=== PATIENT | female | born 1960 | race Hispanic/Latino ===

== ENCOUNTER 2017-09-03 16:35 | Outpatient (CLI) | payer BC | END 2017-09-03 16:36 | disposition home or self-care (01) | LOC: LAB 16:35 | PROVIDERS: ATTEND Internal Medicine | DX: R73.01 Impaired fasting glucose (principal) | CPT/HCPCS: 36415; 83036 ==

== ENCOUNTER 2017-09-12 08:14 | Outpatient (CLI) | payer BC ==
--- NOTE | 2017-09-13 14:48 | Magnetic Resonance Report ---
MR LOWER EXTREMITY JOINT LEFT WITHOUT CONTRAST History: Left knee pain. Meniscal tear. Technique: Multisequence, multiplanar MRI without contrast. Findings: No comparison. Mild to moderate cartilage thinning and joint space narrowing is identified in the medial compartment. The lateral compartment and patellofemoral space are within normal limits. There is minimal subchondral bone marrow edema in the medial tibial plateau consistent with contusion. The remaining bone marrow signal is within normal limits. No bone lesion or fracture. The ACL, PCL, MCL, LCL complex and extensor complex are intact. Normal popliteus. The lateral meniscus is normal. The posterior horn of the medial meniscus is flattened and irregular. This probably represents a complex tear or advanced degeneration. The remainder of the medial meniscus is within normal limits. No significant joint effusion. No popliteal cyst. Impression: Mild to moderate medial compartment osteoarthritic changes. Slightly abnormal posterior horn medial meniscus. Advanced degeneration or tear is suspected.
== END 2017-09-12 08:15 | disposition home or self-care (01) ==
LOC: MRI 08:14
PROVIDERS: ATTEND Orthopaedic Surgery
DX: M17.12 Unilateral primary osteoarthritis, left knee (principal)
CPT/HCPCS: 73721

== ENCOUNTER 2017-10-24 07:02 | Day surgery (SDC) | payer BC ==
[2017-10-24] MEDS ORDERED: XYLOCAINE MPF 2% ONE (07:31)
[2017-10-24] MEDS ORDERED: ZEMURON IV ONE (07:31)
[2017-10-24] MEDS ORDERED: DIPRIVAN 10 MG/ML IV ONE (07:32)
[2017-10-24] MEDS ORDERED: DILAUDID ONE (07:32)
[2017-10-24] MEDS ORDERED: NACL BACTERIOSTATIC INFILTRATI ONE (07:41)
--- NOTE | 2017-10-24 07:53 | Anesthesia Consultation ---
Anesthesia Consult and Med Hx Date of service: 10/24/17 - Airway Anesthetic Teeth Evaluation: Good ROM Head & Neck: Adequate Mental/Hyoid Distance: Adequate Mallampati Class: Class I Intubation Access Assessment: Good - Pulmonary Exam CTA: Yes - Cardiac Exam Cardiac Exam: RRR - Pre-Operative Health Status ASA Pre-Surgery Classification: ASA2 Proposed Anesthetic Plan: General - Pre-Anesthesia Comment Pre-Anesthesia Comments: PONV - Gastrointestinal Hx Gastroesophageal Reflux Disease: Yes (MILD) - Endocrine Hx Non-Insulin Dependent Diabetes: Yes (Pre Diabetic ) - Other Systems Hx Obesity: Yes
--- NOTE | 2017-10-24 07:54 | Anesthesia Day of Surgery ---
Anesthesia Day of Surgery - Day of Surgery Patient Examined: Yes Patient H&P Reviewed: Yes Patient is NPO: Yes
[2017-10-24] MEDS ORDERED: ANCEF/STERILE WATER 2 GM/20 ML IV NR (08:00)
[2017-10-24] MEDS ORDERED: PEPCID IV NR (08:00)
[2017-10-24] MEDS ORDERED: TRANSDERM-SCOP TD NR (08:00)
[2017-10-24] MEDS ORDERED: PEPCID PO NR (08:00)
[2017-10-24] MEDS ORDERED: NACL 0.9% 1000 ML 1,000 ML IV SCH (08:00)
[2017-10-24] MEDS ORDERED: VERSED IV NR (08:00)
[2017-10-24] MEDS ORDERED: MARCAINE 0.25% INFILTRATI ONE ×3 (08:29→08:30)
[2017-10-24] MEDS ORDERED: XYLOCAINE 1% 20 mL ONE (08:29)
[2017-10-24] MEDS ORDERED: XYLOCAINE 1% 20 mL INFILTRATI ONE ×2 (08:30)
[2017-10-24] MEDS ORDERED: QUELICIN ONE (08:31)
--- NOTE | 2017-10-24 08:36 | Short Stay Summary ---
Short Stay Documentation Date of service: 10/24/17 Narrative H&P: 57 yo F with RUQ pain, intermittement, recently hospitalized and worked up for CP/abd pain and found to have elevated LFTs, gallstones, negative cardiac workup. The patient was referred for cholecystectomy and seen in the office as an outpatient. F/U labs showed resolution of transaminitis. Patient is still having discomfort daily in RUQ and now presents for elective cholecystectomy. - History Principal diagnosis: chronic cholecystitis H&P: obtained from office - Allergies and Medications Current Medications: Allergies codeine Allergy (Verified 10/17/17 16:12) Hives Sulfa (Sulfonamide Antibiotics) Allergy (Verified 10/17/17 16:12) 2N DEGREE JOHNSON 2ND DEGREE JOHNSON ON SKIN, BLISTERS Home Medications Medication Instructions Recorded Confirmed Last Taken Type metFORMIN [Glucophage] 500 mg PO BID 09/30/17 10/24/17 10/23/17 07:00 History Ondansetron [Zofran TAB] 4 mg PO Q8HR PRN #30 tablet 10/01/17 10/24/17 10/23/17 08:30 Rx traMADol [Ultram] 50 mg PO Q6HR PRN #14 tablet 10/01/17 10/17/17 Unknown Rx Omeprazole 20 mg PO DAILY 10/17/17 10/24/17 10/23/17 09:00 History Active Medications Cefazolin Sodium (Ancef/Sterile Water 2 Gm/20 Ml) 2 gm IV PREOP NR Stop: 10/24/17 23:59 Famotidine (Pepcid) 20 mg IV PREOP NR Stop: 10/24/17 21:00 Last Admin: 10/24/17 08:12 Dose: 20 mg Sodium Chloride (Nacl 0.9% 1000 Ml) 1,000 mls @ 42 mls/hr IV DIRECT CASANDRA Last Admin: 10/24/17 08:11 Dose: 42 mls/hr Midazolam HCl (Versed) 2 mg IV PREOP NR Stop: 10/24/17 23:59 Last Admin: 10/24/17 08:16 Dose: 2 mg Scopolamine (Transderm-Scop) 1 each TD PREOP NR Stop: 10/24/17 21:00 Last Admin: 10/24/17 08:12 Dose: 1 each - Brief post op/procedure progress note Date of procedure: 10/24/17 Pre-op diagnosis: chronic cholecystitis Post-op diagnosis: same Procedure: laparoscopic cholecystectomy Anesthesia: GETA Findings: thickened gallbladder wall with small stones in gallbladder. adhesions to colon and duodenum Surgeon: DANIS PERDOMO Estimated blood loss: minimal Pathology: list (gallbladder) Specimen disposition: to lab Condition: stable - Hospital course Hospital course: Pt recovered in the PACU and discharged to home when criteria met. - Disposition Condition at discharge: Stable Disposition: DC-01 TO HOME OR SELFCARE - Discharge Diagnoses (1) Chronic cholecystitis Status: Acute Short Stay Discharge Plan Activity: other (no heavy lifting more than 15 lbs for 4 weeks. No driving if taking narcotic pain meds.) Diet: regular Wound: open to air, other (may shower, no baths/hottubs/pools until incisions healed. Pat dry, do not scrub incisions.) Additional Instructions: Call surgeon's office if having intractable nausea/vomiting, abdominal pain not controlled with oral pain meds, or redness around incisions, pus draining from incisions. Follow up with: ÁNGELA ROMEO MD [Primary Care Provider] - 7 Days DANIS PERDOMO DO [Staff Physician] - 14 Days Prescriptions: Ondansetron [Zofran Odt] 4 mg PO Q8HR #20 tab.rapdis oxyCODONE /ACETAMINOPHEN [Percocet 5/325] 1 tab PO Q4HR #20 tab
[2017-10-24] MEDS ORDERED: ZOFRAN ONE ×2 (09:01→10:47)
[2017-10-24] MEDS ORDERED: ROBINUL ONE (09:01)
[2017-10-24] MEDS ORDERED: DECADRON ONE (09:01)
[2017-10-24] MEDS ORDERED: NEOSTIGMINE ONE (09:01)
[2017-10-24] MEDS ORDERED: NACL 0.9% IR ONE (09:23)
[2017-10-24] MEDS ORDERED: ePHEDrine SULFATE ONE (09:24)
[2017-10-24] MEDS ORDERED: NACL 0.9% 1000 ML 1,000 ML ONE (09:52)
[2017-10-24] MEDS ORDERED: TORADOL ONE (10:09)
[2017-10-24] MEDS ORDERED: ZOFRAN IM ONE (10:55)
--- NOTE | 2017-10-24 10:57 | Operative Report ---
Operative Report Operative Report: Date of operation: 10/24/2017 Preoperative diagnosis: Chronic cholecystis Postoperative diagnosis: Chronic cholecystitis Procedure performed: Left. Cholecystectomy Surgeon: Jie Mccloud DO Anesthesia: Gen. endotracheal anesthesia Findings: Dilated gallbladder thickened wall small stones in the neck, adhesions from the gallbladder to the colon and duodenum EBL: <5cc Specimen: Gallbladder Complications: None Disposition: Stable to PACU HPI and indication: Patient is a 57 yo F who has been having ongoing RUQ pain and nausea for the last several weeks. She was admitted to the hospital for c/o CP/RUQ and had a full cardiac workup which was negative. Her RUQ u/s showed gallstones and her LFTs were elevated. The transaminitis slowly resolved and she was able to be discharged. Patient was seen in the office and scheduled for an elective cholecystectomy. All risks were discussed and consent signed after all questions answered. Procedure in detail: Patient was identified in the preoperative area and taken back to the OR and placed on the OR table in supine position. After anesthesia was induced, the abdomen was prepped and draped in the usual sterile fashion. A time out was performed. Local anesthetic was infiltrated into the skin and subcutaneous tissue at all incision sites. The abdomen was insufflated with a veress needle through a 5mm supraumbilical incision made using an 11 blade. The positioning of the veress needle was confirmed using a saline drop test. The abdomen was insufflated to 15mmHg and the Veress needle removed. Using Visiport , a 5 mm trocar was placed in this incision. The abdomen was then inspected and there is no underlying injury to any of the abdominal structures. An additional 12 mm subxiphoid, and 2 -5 mm right upper quadrant ports were placed all under direct visualization. The gallbladder was grasped and lifted cephalad. There were adhesions from the right colon and the duodenum to the gallbladder. These adhesions were taken down bluntly with great care. The cystic duct and artery were then meticulously dissected and skeletonized. The cystic plate was cleared and the cystic duct and artery were the only 2 structures entering the gallbladder. These were then clipped with 3 clips proximal on the cystic duct and one distal and 2 clips proximal on the cystic artery and one distal. The cystic duct and artery were then transected in between the clips using EndoShears. The gallbladder was then removed from the liver bed using hook electrocautery. It was placed into an Endo Catch bag and removed from the abdomen via 12 mm subxiphoid port. The gallbladder fossa was then inspected and there was no bleeding identified. The clips were identified and intact. The gallbladder fossa and Morison's pouch were then irrigated with saline until the irrigant returned clear. The 12 mm port fascia was then closed using an 0 Vicryl interrupted stitch using a Steve Andrade device. All of the ports were then removed under direct visualization and the abdomen desufflated. All skin incisions were closed using 4-0 Monocryl subcuticular stitches and skin glue. At the end of the case all sponge, instrument, and sharp counts were correct 2. Patient was awoke from anesthesia, extubated and taken to PACU in stable condition.
[2017-10-24] MEDS ORDERED: PERCOCET 5/325 PO PRN (11:01)
[2017-10-24] MEDS ORDERED: ZOFRAN IV ONE (11:28)
[2017-10-24] MEDS ORDERED: DECADRON IV NR (12:04)
--- NOTE | 2017-10-24 13:23 | Post Anesthesia Evaluation ---
- Post Anesthesia Evaluation Patient Participated: Yes Airway Patent: Yes Stable Respiratory Function: Yes Nausea/Vomiting: No Temp > 96.8F: Yes Pain Manageable: Yes Adequeate Hydration: Yes Anesthesia Complications: No
[2017-10-24] MEDS ORDERED: PHENERGAN PO ONE (13:37)
[2017-10-24 16:29] VITALS: BP 128/70
== END 2017-10-24 13:48 | disposition home or self-care (01) ==
LOC: OR 07:02
PROVIDERS: ATTEND Surgery
DX: K80.10 Calculus of gallbladder with chronic cholecystitis without obstruction (principal); K66.0 Peritoneal adhesions (postprocedural) (postinfection); K21.9 Gastro-esophageal reflux disease without esophagitis; M19.90 Unspecified osteoarthritis, unspecified site; E66.9 Obesity, unspecified; F41.9 Anxiety disorder, unspecified; Z68.38 Body mass index [BMI] 38.0-38.9, adult; Z98.890 Other specified postprocedural states; Z90.710 Acquired absence of both cervix and uterus; Z79.84 Long term (current) use of oral hypoglycemic drugs; Z88.5 Allergy status to narcotic agent; Z88.2 Allergy status to sulfonamides
CPT/HCPCS: 47562; 82962; 88304; A4217; J0330; J0690; J1100; J1170; J1885; J2250; J2405; J2704; J2710; J7030; Q0169

== ENCOUNTER 2018-11-20 15:37 | Outpatient (CLI) | payer BC ==
--- NOTE | 2018-11-24 09:00 | Magnetic Resonance Report ---
MR LOWER EXTREMITY JOINT LEFT WITHOUT CONTRAST HISTORY: Neoplasm of unspecified behavior of bone, soft-tissue, and skin. TECHNIQUE: Multisequence, multiplanar MRI without contrast was performed through the left ankle and foot. COMPARISON: No relevant comparison. FINDINGS: A vitamin E marker has been placed overlying the medial, distal foot. Underlying this marker, a 13 x 9 x 7 mm intermediate signal mass is identified. This mass has well-defined borders and is homogeneous. There is an intimate association with the tendon sheath of the flexor hallucis longus tendon. This has the appearance of a focal plantar fibroma. No additional fibroma or other mass is identified. The remaining musculotendinous structures are unremarkable. No evidence for rupture, tendinosis or tenosynovitis. The plantar fascia is intact. There is normal bone marrow signal through the visualized left foot. Moderate osteoarthritis is noted at the first metatarsophalangeal joint. There is also a moderate hallux valgus deformity measuring up to 30 degrees. No erosive joint pathology, bone lesion or fracture. 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
== END 2018-11-20 15:38 | disposition home or self-care (01) ==
LOC: MRI 15:37
PROVIDERS: ATTEND Podiatrist Foot & Ankle Surgery
DX: D21.22 Benign neoplasm of connective and other soft tissue of left lower limb, including hip (principal); E66.9 Obesity, unspecified; I10 Essential (primary) hypertension; J44.9 Chronic obstructive pulmonary disease, unspecified; K21.9 Gastro-esophageal reflux disease without esophagitis; E11.9 Type 2 diabetes mellitus without complications; M19.90 Unspecified osteoarthritis, unspecified site; Z90.710 Acquired absence of both cervix and uterus; Z90.12 Acquired absence of left breast and nipple
CPT/HCPCS: 73721

== ENCOUNTER 2019-02-12 16:02 | Outpatient (CLI) | payer BC ==
--- NOTE | 2019-02-13 11:39 | Mammography Report ---
BILATERAL DIGITAL SCREENING MAMMOGRAM with CAD: 02/12/19 16:02:00 CLINICAL: Routine screening. COMPARISON:10/07/13 and 09/23/12 FINDINGS: The breasts are heterogeneously dense, which may obscure small masses. Left asymmetries require additional imaging.No architectural distortion or suspicious calcifications.The right breast is negative. IMPRESSION: Left asymmetries requiring further workup. BI-RADS CATEGORY: 0 -- Additional Imaging Evaluation Required RECOMMENDATION: Recall for left mediolateral , spot magnification CC and MLO views and left breast ultrasound if needed. ACR BI-RADS MAMMOGRAPHIC CODES: 0 = Needs additional imaging evaluation; 1 = Negative; 2 = Benign; 3 = Probably benign; 4 = Suspicious; 5 = Malignant; 6 = Known biopsy-proven malignancy COMMENT: 1. Dense breast tissue, i.e., adenosis, fibrocystic changes, etc., may obscure an underlying neoplasm. 2. Approximately 10% of cancers are not detected with mammography. 3. A negative mammography report should not delay biopsy if a clinically suspicious mass is present. COMMENT: Patient follow-up letters are generated via our [employer] application.
== END 2019-02-12 16:03 | disposition home or self-care (01) ==
LOC: SPVWC 16:02
PROVIDERS: ATTEND Obstetrics & Gynecology
DX: Z12.31 Encounter for screening mammogram for malignant neoplasm of breast (principal); E66.9 Obesity, unspecified; I10 Essential (primary) hypertension; J45.909 Unspecified asthma, uncomplicated; K21.9 Gastro-esophageal reflux disease without esophagitis; M19.90 Unspecified osteoarthritis, unspecified site; E11.9 Type 2 diabetes mellitus without complications; Z90.710 Acquired absence of both cervix and uterus
CPT/HCPCS: 77067

== ENCOUNTER 2019-04-07 13:20 | Outpatient (CLI) | payer BC ==
--- NOTE | 2019-04-07 14:22 | Mammography Report ---
LEFT DIGITAL DIAGNOSTIC MAMMOGRAM and LEFT BREAST ULTRASOUND: 04/07/19 13:20:00 CLINICAL: Recalled for asymmetry. COMPARISON:02/12/19 screening FINDINGS: ML and spot magnification MLO and CC views were performed. An irregular mass persists in the lower outer quadrant along views. Ultrasound of the lower outer left breast was performed and demonstrated a solid hypoechoic mass at 4 o'clock 3 cm from the nipple. It has an irregular shape with somewhat angular margins and measures 1.0 x 0.4 x 0.5 cm.The mass produces minimal shadowing. IMPRESSION: A suspicious 1 cm left breast mass at 4 o'clock 3 cm from the nipple. BI-RADS CATEGORY: 4--Suspicious RECOMMENDATION: Ultrasound guided needle core biopsy of the left breast. I discussed the findings and the recommendation for needle core biopsy of the left breast with the patient at the time of the examination. COMMENT: 1. Dense breast tissue, i.e., adenosis, fibrocystic changes, etc., may obscure an underlying neoplasm. 2. Approximately 10% of cancers are not detected with mammography. 3. A negative mammography report should not delay biopsy if a clinically suspicious mass is present. COMMENT: Patient follow-up letters are generated via our [employer] application.
== END 2019-04-07 13:21 | disposition home or self-care (01) ==
LOC: SPVWC 13:20
PROVIDERS: ATTEND Obstetrics & Gynecology
DX: R92.8 Other abnormal and inconclusive findings on diagnostic imaging of breast (principal); K21.9 Gastro-esophageal reflux disease without esophagitis; J45.909 Unspecified asthma, uncomplicated; E11.9 Type 2 diabetes mellitus without complications; Z90.710 Acquired absence of both cervix and uterus

== ENCOUNTER 2019-04-14 13:41 | Outpatient (CLI) | payer BC ==
--- NOTE | 2019-04-14 14:48 | Mammography Report ---
LEFT DIGITAL DIAGNOSTIC MAMMOGRAM: 04/14/19 13:41:00 CLINICAL: For clip placement immediately status post ultrasound biopsy. COMPARISON:04/07/19 FINDINGS: A biopsy clip is now identified within the lower outer mass. IMPRESSION: Concordant clip placement status post ultrasound biopsy. BI-RADS CATEGORY: 4--Suspicious Pathology pending.
--- NOTE | 2019-04-14 14:50 | Ultrasound Report ---
ULTRASOUND GUIDED NEEDLE CORE BIOPSY LEFT BREAST WITH CLIP PLACEMENT: 04/14/19 14:00:00 CLINICAL: Left breast mass. COMPARISON :04/07/19 FINDINGS: The procedure was explained to the patient and informed consent was obtained. Ultrasound demonstrated the previously described 1 cm mass at 4 o'clock 3 cm from the nipple. I marked the breast with a felt tip marker and a time out was called. The skin was prepped with Betadine and anesthetized with 1% lidocaine. Needle core biopsy was performed through a tiny dermatotomy using ultrasound guidance, 2% lidocaine with epinephrine for deep anesthesia and a 14-gauge Achieve biopsy device. 4 cores were obtained and placed in formalin. A clip was deployed within the mass. The patient tolerated the procedure well and there were no apparent complications. Hemostasis was achieved with minimal pressure and a sterile dressing was applied. A two view mammogram demonstrated concordant deployment of the clip. She left the department in good condition and was given instructions for wound care and followup. IMPRESSION: Uncomplicated ultrasound guided needle core biopsy with clip placement left breast.
== END 2019-04-14 13:42 | disposition home or self-care (01) ==
LOC: SPVWC 13:41
PROVIDERS: ATTEND Obstetrics & Gynecology
DX: D24.2 Benign neoplasm of left breast (principal); I10 Essential (primary) hypertension; E66.9 Obesity, unspecified; M19.90 Unspecified osteoarthritis, unspecified site; E11.9 Type 2 diabetes mellitus without complications; K21.9 Gastro-esophageal reflux disease without esophagitis; J45.909 Unspecified asthma, uncomplicated; Z88.5 Allergy status to narcotic agent; Z90.710 Acquired absence of both cervix and uterus; Z88.2 Allergy status to sulfonamides; Z79.899 Other long term (current) drug therapy; Z79.84 Long term (current) use of oral hypoglycemic drugs; Z98.890 Other specified postprocedural states; Z72.89 Other problems related to lifestyle
CPT/HCPCS: 88305

== ENCOUNTER 2019-08-18 10:22 | Outpatient (CLI) | payer BC ==
[2019-08-18 11:16] LABS: Alanine Aminotransferase 19 units/L (7-56); Albumin 4.5 g/dL (3.9-5); BUN/Creatinine Ratio 36; Blood Urea Nitrogen 18 mg/dL (7-17); Calcium 9.3 mg/dL (8.4-10.2); Hemolysis Index 22; LDL Cholesterol,Direct 121 mg/dL (50-130)
[2019-08-18 11:31] LABS: Chol/HDL Ratio 2.62 %; HDL Cholesterol 79 mg/dL (40-59)
== END 2019-08-18 10:23 | disposition home or self-care (01) ==
LOC: LAB 10:22
PROVIDERS: ATTEND Internal Medicine
DX: R73.03 Prediabetes (principal)
CPT/HCPCS: 36415; 80053; 80061; 83036

== ENCOUNTER 2019-09-22 14:02 | Outpatient (CLI) | payer BC ==
--- NOTE | 2019-09-22 14:54 | Mammography Report ---
DIGITAL LEFT DIAGNOSTIC MAMMOGRAM WITH CAD, WITHOUT TOMOSYNTHESIS 09/22/2019 INDICATION: Follow-up after needle biopsy of benign fibroadenomatoid change. TECHNIQUE: Digital left mammographic imaging was performed. This examination was interpreted with the benefit of Computer-aided Detection analysis. COMPARISON: 04/14/2019 and 04/07/2019 Breast Density: There are scattered areas of fibroglandular density. FINDINGS: The previously described lower outer low-density partially circumscribed mass is less promi nent and contains a biopsy clip. IMPRESSION: No mammographic evidence of malignancy. Follow up recommendation: Routine BI-RADS Category 2: Benign. A "normal" or negative report should not discourage follow up or biopsy of a clinically significant f inding. A written summary of these findings will be mailed to the patient. The patient will be entered into a mammography reporting system which will generate a reminder letter for the patient's next appointmen t at the appropriate interval. According to the [employer], yearly mammograms are recommended starting at age 40 and continuing as long as a woman is in good health. Breast MRI is recommended for women with an randall roximately 20-25% or greater lifetime risk of breast cancer, including women with a strong family his tory of breast or ovarian cancer and women who have been treated for Hodgkin's disease. Signer Name: Jarrett Paulino MD Signed: 09/22/2019 2:50 PM Workstation Name: [id number]
--- NOTE | 2019-09-22 15:54 | Ultrasound Report ---
LIMITED LEFT BREAST ULTRASOUND HISTORY: Follow-up after ultrasound-guided needle biopsy with nonspecific benign pathology. Pathology : Fibroadenomatous change. COMPARISON: 04/14/2019 FINDINGS: Focused sonographic evaluation upon the 4:00 3 cm from the nipple location of the right noelle ast demonstrates a stable solid slightly irregular hypoechoic mass with a biopsy clip. It measures 10 x 4 x 5 mm and has not changed. IMPRESSION: A stable 1 cm benign left breast mass at 4:00 3 cm from the nipple. Recommend routine mammographic sc reening. BIRADS 2: Benign Signer Name: Jarrett Paulino MD Signed: 09/22/2019 3:50 PM Workstation Name: [id number]
== END 2019-09-22 14:03 | disposition home or self-care (01) ==
LOC: SPVWC 14:02
PROVIDERS: ATTEND Surgery
DX: Z12.31 Encounter for screening mammogram for malignant neoplasm of breast (principal); N63.0 Unspecified lump in unspecified breast; D24.2 Benign neoplasm of left breast; J45.909 Unspecified asthma, uncomplicated; K21.9 Gastro-esophageal reflux disease without esophagitis; Z90.710 Acquired absence of both cervix and uterus; M19.90 Unspecified osteoarthritis, unspecified site; Z98.890 Other specified postprocedural states

== ENCOUNTER 2019-12-22 14:17 | Outpatient (CLI) | payer BC ==
--- NOTE | 2019-12-22 14:53 | XRay Report ---
LEFT KNEE 2 VIEWS INDICATION / CLINICAL INFORMATION: M25.562 PAIN IN LEFT KNEE. COMPARISON: None available. FINDINGS: Moderate degenerative change, with joint space narrowing and hypertrophic spurring medially. No acute fracture. No evidence of significant joint effusion or hemarthrosis. Signer Name: Dave Roach MD Signed: 12/22/2019 2:48 PM Workstation Name: [id number]
== END 2019-12-22 14:18 | disposition home or self-care (01) ==
LOC: XRAY 14:17
PROVIDERS: ATTEND Internal Medicine
DX: M17.12 Unilateral primary osteoarthritis, left knee (principal); M76.892 Other specified enthesopathies of left lower limb, excluding foot

== ENCOUNTER 2020-01-11 16:42 | Outpatient (CLI) | payer BC ==
--- NOTE | 2020-01-11 18:03 | XRay Report ---
HISTORY:UNILATERAL PRIMARY OSTEOARTHRITIS COMPARISON: None. TECHNIQUE: AP lateral and obliques views were obtained as well as sunrise view FINDINGS: Bones: No fracture or dislocation. Joint spaces: Marked narrowing of the femorotibial articulation predominantly medial aspect with smal l osteophytes. Soft tissues: No significant abnormality. Additional findings: None. IMPRESSION: 1. Degenerative changes as noted . Signer Name: Reyes Cardenas MD Signed: 01/11/2020 5:59 PM Workstation Name: [id number]
== END 2020-01-11 16:43 | disposition home or self-care (01) ==
LOC: XRAY 16:42
PROVIDERS: ATTEND Orthopaedic Surgery
DX: M25.762 Osteophyte, left knee (principal); M17.12 Unilateral primary osteoarthritis, left knee

== ENCOUNTER 2020-01-18 13:22 | Outpatient (CLI) | payer BC ==
[2020-01-18 13:43] LABS: Hematocrit 43.4 % (30.3-42.9); Hemoglobin 14.7 gm/dl (10.1-14.3); Mean Corpuscular HGB Conc 34 % (30-34); Mean Corpuscular Volume 95 fl (79-97); Platelet Count 343 K/mm3 (140-440); Red Cell Distribution Width 13.2 % (13.2-15.2)
[2020-01-18 13:46] LABS: Bilirubin,Urine NEG (Negative); Color,Urine Straw (Yellow)
[2020-01-18 13:47] LABS: Bacteria,Urine 1+ /HPF (Negative); Blood,Urine NEG (Negative); Protein,Urine <15 mg/dL mg/dL (Negative); Urobilinogen,Urine < 2.0 mg/dL (<2.0)
[2020-01-18 13:53] LABS: INR 0.96 (0.87-1.13)
[2020-01-18 14:05] LABS: Alanine Aminotransferase 38 units/L (7-56); Albumin 4.7 g/dL (3.9-5); BUN/Creatinine Ratio 16; Blood Urea Nitrogen 13 mg/dL (7-17); Calcium 9.9 mg/dL (8.4-10.2); Hemolysis Index 0
== END 2020-01-18 13:23 | disposition home or self-care (01) ==
LOC: LAB 13:22
PROVIDERS: ATTEND Orthopaedic Surgery
DX: Z01.818 Encounter for other preprocedural examination (principal); M25.569 Pain in unspecified knee
CPT/HCPCS: 36415; 80053; 81001; 85027; 85610; 87086

== ENCOUNTER 2020-01-26 14:16 | Outpatient (CLI) | payer BC ==
--- NOTE | 2020-01-26 15:05 | Mammography Report ---
DIGITAL SCREENING MAMMOGRAM WITH CAD, 01/26/2020 INDICATION: Routine screening mammography. Status post left benign biopsy 04/14/2019. Pathology: Benig n fibroadenomatoid change. TECHNIQUE: Digital bilateral 2D mammography was obtained in the craniocaudal and mediolateral obliq ue projections. This examination was interpreted with the benefit of Computer-Aided Detection analysi s. COMPARISON: 02/12/2019 FINDINGS: Breast Density: The breasts are heterogeneously dense, which may obscure small masses. There is no evidence of dominant mass, suspicious calcifications or architectural distortion in eithe r breast. A left outer biopsy clip corresponds to the recent biopsy site. The previously identified m ass at the clip is less prominent. IMPRESSION: No mammographic evidence of malignancy. Follow up recommendation: Routine yearly BI-RADS Category 2: Benign. A "normal" or negative report should not discourage follow up or biopsy of a clinically significant f inding. A written summary of these findings will be mailed to the patient. The patient will be entered into a mammography reporting system which will generate a reminder letter for the patient's next appointmen t at the appropriate interval. The [employer] recommends yearly mammograms starting at age 40 and continuing as l lito as a woman is in good health. Breast MRI is recommended for women with an approximate 20-25% or greater lifetime risk of breast cancer, including women with a strong family history of breast or ova araceli cancer or who have been treated for Hodgkin's disease. Signer Name: Jarrett Paulino MD Signed: 01/26/2020 3:00 PM Workstation Name: [id number]
== END 2020-01-26 14:17 | disposition home or self-care (01) ==
LOC: SPVWC 14:16
PROVIDERS: ATTEND Surgery
DX: Z12.31 Encounter for screening mammogram for malignant neoplasm of breast (principal)
CPT/HCPCS: 77067

== ENCOUNTER 2020-04-26 13:37 | Outpatient (CLI) | payer BC | END 2020-04-26 13:38 | disposition home or self-care (01) | LOC: XRAY 13:37 | PROVIDERS: ATTEND Internal Medicine | DX: J18.9 Pneumonia, unspecified organism (principal) | CPT/HCPCS: 71046 ==

== ENCOUNTER 2020-08-25 05:59 | Inpatient (IN) | payer BC ==
[2020-08-23 13:54] LABS: Bilirubin,Urine NEG (Negative); Blood,Urine NEG (Negative); Color,Urine Yellow (Yellow); Mucus,Urine FEW /HPF; Protein,Urine <15 mg/dL mg/dL (Negative); Urobilinogen,Urine < 2.0 mg/dL (<2.0)
[~2020-08-25 05:59] MED LIST: BACITRACIN 50,000 UNIT VIAL IR ONE; SODIUM CHLORIDE 0.9% IRR 1,500 ML BOTTLE IR ONE; SODIUM CHLORIDE 0.9% IRRIG SOLN 2000 ML IR ONE; ceFAZolin/STERILE WATER 2 GM/20 ML SYRINGE IV NR
[2020-08-25] MEDS ORDERED: BACTERIOSTATIC SODIUM CHLORIDE 0.9% 30 ML VIAL INFILTRATI ONE (06:19)
[2020-08-25] MEDS ORDERED: BUPIVACAINE/PF (0.25%) 2.5 MG/ML 30 ML VIAL INFILTRATI ONE ×3 (06:23→10:17)
[2020-08-25] MEDS ORDERED: BACITRACIN 50,000 UNIT VIAL ONE (06:23)
[2020-08-25] MEDS ORDERED: OXYCHLOROSENE 2 GM POWDER IR ONE (06:23)
[2020-08-25] MEDS ORDERED: MORPHINE 10 MG/1 ML INJ ONE (06:24)
[2020-08-25] MEDS ORDERED: KETOROLAC 30 MG/1 ML INJ ONE (06:25)
[2020-08-25] MEDS ORDERED: POLYMYXIN B SULFATE 500,000 UNIT VIAL IV ONE (06:26)
[2020-08-25] MEDS ORDERED: TRANEXAMIC ACID 1,000 MG/10 ML ONE (06:26)
[2020-08-25] MEDS ORDERED: SODIUM CHLORIDE 0.9% 50 ML ONE (06:26)
[2020-08-25] MEDS ORDERED: SODIUM CHLORIDE 0.9% 500 ML 500 ML ONE (06:26)
[2020-08-25] MEDS ORDERED: SODIUM CHLORIDE P/F VIAL 10 ML 10 ML ONE (06:27)
[2020-08-25] MEDS ORDERED: ceFAZolin/Water 2 GM/20 ML 2 GM/20 ML SYRINGE IV ONE (07:05)
[2020-08-25] MEDS ORDERED: LACTATED RINGERS 1,000 ML ONE ×2 (07:06→11:11)
--- NOTE | 2020-08-25 07:06 | Anesthesia Consultation ---
Anesthesia Consult and Med Hx Date of service: 08/25/20 - Airway Anesthetic Teeth Evaluation: Good ROM Head & Neck: Adequate Mental/Hyoid Distance: Adequate Mallampati Class: Class II Intubation Access Assessment: Good - Pulmonary Exam CTA: Yes - Cardiac Exam Cardiac Exam: RRR - Pre-Operative Health Status ASA Pre-Surgery Classification: ASA2 Proposed Anesthetic Plan: General Nerve Block: ACB - Pulmonary Hx Smoking: No Hx Asthma: No SOB: Yes (HX SOB WITH UPPER RESP. INF.) COPD: No Hx Pneumonia: No Hx Sleep Apnea: No (SNORES OCC. LOW ON NATHALY PRESCREEN) - Cardiovascular System Hx Hypertension: No (PATIENT SAYS NO) Hx Heart Attack/AMI: No Hx Pacemaker: No Hx Internal Defibrillator: No Hx Heart Murmur: No - Central Nervous System Hx Seizures: No Hx Back Pain: Yes (ALSO NECK PAIN) Hx Psychiatric Problems: No - Gastrointestinal Hx Ulcer: No Hx Gastroesophageal Reflux Disease: Yes (MILD) - Endocrine Hx Renal Disease: No Hx End Stage Renal Disease: No Hx Cirrhosis: No Hx Liver Disease: No Hx Non-Insulin Dependent Diabetes: Yes (Pre Diabetic ) Hx Thyroid Disease: No - Hematic Hx Anemia: Yes Hx Sickle Cell Disease: No - Other Systems Hx Alcohol Use: Yes (OCCAS) Hx Substance Use: No Hx Cancer: No Hx Obesity: Yes
--- NOTE | 2020-08-25 07:07 | Anesthesia Day of Surgery ---
Anesthesia Day of Surgery - Day of Surgery Patient Examined: Yes Patient H&P Reviewed: Yes Patient is NPO: Yes
[2020-08-25] MEDS: LACTATED RINGERS 1,000 ML IV SCH ×2 (07:08→20:17)
[2020-08-25] MEDS ORDERED: MIDAZOLAM 2 MG/2 ML INJ ONE ×2 (07:19→08:14)
[2020-08-25] MEDS ORDERED: fentaNYL 100 MCG/2 ML INJ ONE (07:19)
[2020-08-25] MEDS ORDERED: HYDROmorphone 1 MG/1 ML INJ ONE (07:24)
[2020-08-25] MEDS ORDERED: propofoL 200 MG/20 ML VIAL IV ONE (07:25)
[2020-08-25] MEDS ORDERED: SCOPOLAMINE TRANSDERMAL PATCH 72 HR TD ONE (07:59)
[2020-08-25] MEDS ORDERED: HYDROmorphone 1 MG/1 ML INJ IV PRN (07:59)
[2020-08-25] MEDS ORDERED: ONDANSETRON 4 MG/2 ML INJ IV PRN ×2 (07:59→21:58)
[2020-08-25] MEDS ORDERED: LIDOCAINE MPF (2%) 20 MG/1 ML VIAL 5 ML ONE (08:13)
[2020-08-25] MEDS ORDERED: dexAMETHasone 20 MG/5 ML VIAL ONE (08:26)
[2020-08-25] MEDS ORDERED: TRANEXAMIC ACID 1,000 MG/10 ML IV ONE (08:35)
[2020-08-25] MEDS ORDERED: PHENYLEPHRINE/NS 1,000 MCG/10 ML SYRINGE (OR USE) IV ONE (08:44)
[2020-08-25] MEDS ORDERED: SODIUM CHLORIDE 0.9% 100 ML ONE ×2 (08:45→10:42)
[2020-08-25] MEDS ORDERED: SODIUM CHLORIDE 0.9% IRR 1,500 ML BOTTLE IR ONE (09:26)
[2020-08-25] MEDS ORDERED: BACITRACIN 50,000 UNIT VIAL IR ONE (09:49)
[2020-08-25] MEDS ORDERED: SODIUM CHLORIDE 0.9% IRRIG SOLN 2000 ML IR ONE (09:49)
[2020-08-25] MEDS ORDERED: KETOROLAC 30 MG/1 ML INJ IV ONE (10:17)
[2020-08-25] MEDS ORDERED: SODIUM CHLORIDE 0.9% 50 ML VIAL INFILTRATI ONE (10:17)
[2020-08-25] MEDS ORDERED: CHLOROPROCAINE 20 MG/1 ML INJ 20 ML INFILTRATI ONE (10:26)
[2020-08-25] MEDS ORDERED: PROMETHAZINE 25 MG RECT SUPP PR PRN (10:45)
[2020-08-25] MEDS ORDERED: MAGNESIUM HYDROXIDE (MOM) ORAL LIQD UDC PO PRN (10:45)
[2020-08-25] MEDS: HYDROmorphone 1 MG/1 ML INJ IV PRN ×2 (11:35→12:10)
[2020-08-25] MEDS ORDERED: MEPERIDINE 25 MG/1 ML INJ IV PRN (11:40)
[2020-08-25] MEDS ORDERED: MEPERIDINE 25 MG/1 ML INJ ONE (11:41)
--- NOTE | 2020-08-25 11:51 | Post Anesthesia Evaluation ---
- Post Anesthesia Evaluation Patient Participated: Yes Airway Patent: Yes Stable Respiratory Function: Yes Nausea/Vomiting: No Temp > 96.8F: Yes Pain Manageable: Yes Adequeate Hydration: Yes Anesthesia Complications: No Block Receding Appropriately: Yes Patient on Ventilator: No
--- NOTE | 2020-08-25 12:44 | XRay Report ---
LEFT KNEE 2 VIEWS INDICATION / CLINICAL INFORMATION: Status post left total knee arthroplasty. COMPARISON: Left knee series from 01/11/2020. FINDINGS: BONES and JOINT(S): Unremarkable total knee arthroplasty. No acute abnormality. SOFT TISSUES: Expected postoperative changes without an acute abnormality. ADDITIONAL FINDINGS: None. IMPRESSION: Expected postoperative appearance of the left knee. Signer Name: Osmin Dixon MD Signed: 08/25/2020 12:39 PM Workstation Name: [id number]
[2020-08-25] MEDS ORDERED: PROMETHAZINE 25 MG TAB PO ONE (12:45)
[2020-08-25] MEDS: GABAPENTIN 300 MG CAP PO SCH ×2 (14:03→20:18)
--- NOTE | 2020-08-25 16:20 | Operative Report ---
PREOPERATIVE DIAGNOSES: 1. Severe osteoarthritis of the left knee joint. 2. Genu varum deformity. 3. Synovial hypertrophy, synovial proliferation, left knee joint. POSTOPERATIVE DIAGNOSES: 1. Severe osteoarthritis of the left knee joint. 2. Genu varum deformity. 3. Synovial hypertrophy, synovial proliferation, left knee joint. PROCEDURE PERFORMED: 1. Left total knee replacement. 2. Partial synovectomy, left knee joint. SURGEON: Dany Slade M.D. PEELER OPERATOR: Keron Andrade, Operative Tech. COMPLICATIONS: None. BLOOD LOSS: Less than 50 mL. IMPLANTS USED: Josue [employer] Nephew Legion Oxinium femoral component size 4, narrow left side, tibia size 3, left side polyethylene liner 9 mm, posterior stabilized patella 29 mm, 3 post, cement Palacos R+G. BRIEF HISTORY: The patient had a painful arthritic left knee, failed conservative treatment, opted to go for surgical intervention. Risks, benefit discussed, informed consent obtained, brought to the hospital for the above procedure. DETAILS OF THE OPERATIVE REPORT: The patient was taken to the operating room. After smooth anesthesia, all the bony prominences were carefully padded, placed supine on the operating table. Thigh tourniquet was placed. Adductor canal block was placed preoperatively. The patient's left lower extremity prepped and draped in sterile fashion. A 2 gram Ancef half an hour before the procedure along with a gram of TXA 10 minutes before the incision. Leg elevated, Esmarch used and tourniquet inflated to 300 mmHg. Longitudinal incision made over the anterior aspect to the knee exposing extensor mechanism. Medial parapatellar arthrotomy performed. Patella displaced laterally. Gross finding revealed severe advanced degenerative arthritis. Subperiosteal dissection was performed on the proximal medial tibia and necessary soft tissue release was performed to correct the fixed angular deformity. Drill was used to open the femoral canal. Distal femur resected at 5 degree valgus angle. Epicondylar access apex was determined. Femoral sizing guide was placed, appropriate components selected. Anterior, posterior condyles were then resected with oscillating saw. Extramedullary tibial cutting guide was placed, proximal tibia resected by perpendicular to long axis of the tibia, minimum bone resection was performed. Lamina spreaders were then placed between femur and tibia. Arthritic ACL and PCL ligaments were removed. Medial and lateral meniscectomy performed, gap balancing was then done by doing appropriate release on the medial side. Once that was done, then gap balancing was checked with a spacer block alignment merlyn, found to be acceptable. Tibia was then sized, positioned and size 3 seemed to be great size, placed in proper position, proper external rotation and prepared for the keel. Femur was then prepared for the box using Josue and Nephew trial femur. Trialing of the knee was performed with 9 posterior stabilized polyethylene liner. We had great stability with full extension, full flexion, patella tracking central, patella was prepared with patellar reaming system, prepared for 3 post-patella, size 29 seemed to be great fit. Patella tracked central throughout range of motion and great stability with full extension, full flexion. Trial components were removed, thoroughly washed the knee area with antibiotic-soaked normal saline followed by normal saline. Bone plug was then placed on the femoral canal. Cementing of the knee was performed. Tibia was cemented first, set in proper position, proper external rotation and packed in place. Excess cement was removed. Femur was then positioned, cemented in proper position, proper external rotation, impacted in place. Excess cement was removed. Trial liner was then placed, cementing of patella performed, compressed in place. Once the cement was hardened, real tibial articulating surface was then implanted and locked in place. Knee moved through range of motion, found to be extremely stable. Tourniquet released. Hemostasis achieved. No active bleeder as such. Arthrotomy pain cocktail injection was injected throughout the periarticular tissue of the knee within body and weight limit as per anesthesia guidelines. Arthrotomy was closed with a combination of 2-0 Ethibond and 0 Vicryl sutures interrupted. Subcutaneous tissue was closed with 0 and 2-0 Vicryl interrupted sutures. Skin was closed with Monocryl. Aquacel dressing done. The patient tolerated the procedure very well, shifted to recovery room in stable condition. Sponge and needle count was correct. JOB# [id number] MARIYA/HASMUKH
[2020-08-25] MEDS: MORPHINE 2 MG/1 ML INJ IV PRN (20:19)
[2020-08-25] MEDS: ASPIRIN 325 MG TAB PO SCH (22:14)
[2020-08-25] MEDS: oxyCODONE /ACETAMINOPHEN 5-325MG TAB PO PRN (22:14)
[2020-08-25] MEDS: metFORMIN 500 MG TAB PO SCH (22:15)
[2020-08-26] MEDS: MORPHINE 2 MG/1 ML INJ IV PRN (03:59)
[2020-08-26] MEDS: LACTATED RINGERS 1,000 ML IV SCH (05:35)
[2020-08-26] MEDS: KETOROLAC 30 MG/1 ML INJ IV PRN ×2 (05:37→12:27)
[2020-08-26] MEDS: oxyCODONE /ACETAMINOPHEN 5-325MG TAB PO PRN ×2 (09:22→15:42)
[2020-08-26] MEDS ORDERED: CYCLOBENZAPRINE 10 MG TAB PO SCH (10:00)
--- NOTE | 2020-08-26 10:25 | Progress Note ---
Regional Anesthesia Block - Regional Anesthesia Block Performed By:: UMER ANN Procedure: Abductor canal block Pt Id, consent, time out; performed. Pt on monitor, VSS stable, sedation given per pre-op RN. Sterile prep and drape. Ultrasound probe placed transverse on the anteromedial thigh at the junction between the middle and distal third of the thigh or below the knee at the level of the tibial tuberosity. 3cc 1% lido skin wheel. Needle tip just anterior to the femoral artery, deep to the sartorius muscle, 20ml .25% bupivacaine injected intimately with negatives aspiration. Pt tolerated procedure will, VSS stable.
[2020-08-26] MEDS: ASPIRIN 325 MG TAB PO SCH (11:55)
[2020-08-26] MEDS: metFORMIN 500 MG TAB PO SCH (11:55)
[2020-08-26] MEDS: GABAPENTIN 300 MG CAP PO SCH ×2 (11:56→17:18)
[2020-08-26 15:16] VITALS: BP 135/67
--- NOTE | 2020-08-26 15:17 | Progress Note ---
Subjective Date of service: 08/26/20 Interval history: pod1 TKA Left, doiong well, did well with PT. dressing dry calf soft NT NVI DC plan with instructions. ASA for DVT. Patient aware Objective Vital signs: Vital Signs - 12hr 08/26/20 08/26/20 08/26/20 04:09 07:55 10:47 Temperature 98.4 F 98.1 F Pulse Rate 70 75 Respiratory 18 17 Rate Blood Pressure 117/58 116/50 Blood Pressure 116/50 [Right] O2 Sat by Pulse 92 90 Oximetry 08/26/20 08/26/20 08/26/20 11:51 14:57 15:14 Temperature 98.6 F Pulse Rate 90 91 H Respiratory 17 Rate Blood Pressure 136/69 Blood Pressure 135/67 [Right] O2 Sat by Pulse 93 93 Oximetry
--- NOTE | 2020-08-26 18:01 | Consultation ---
History of Present Illness - Reason for Consult Consult date: 08/26/20 Medical management Requesting physician: BABAK GONZALEZ - History of Present Illness S/p left TKR. Postop patient is doing well. No complications Past History Past Medical History: diabetes Past Surgical History: total knee replacement (Left) Social history: lives with family, full code Family history: diabetes Medications and Allergies Allergies Allergy/AdvReac Type Severity Reaction Status Date / Time codeine Allergy Hives Verified 10/17/17 16:12 Sulfa (Sulfonamide Allergy 2N DEGREE Verified 08/17/20 16:57 Antibiotics) JOHNSON Home Medications Medication Instructions Recorded Confirmed Last Taken Type metFORMIN [Glucophage] 500 mg PO BID 09/30/17 08/25/20 08/24/20 09:00 History Cholecalciferol (Vitamin D3) 2,000 unit PO Q48HR 02/11/20 08/18/20 08/18/20 History [Vitamin D3 2,000 UNIT CAP] Ibuprofen [Motrin] 800 mg PO Q8HR PRN 02/11/20 08/18/20 08/14/20 History Cranberry 1 tab PO DAILY 08/17/20 08/17/20 08/18/20 History Acetaminophen [Tylenol] 1,000 mg PO ONCE 08/25/20 08/25/20 08/25/20 05:15 History Gabapentin [Neurontin] 300 mg PO ONCE 08/25/20 08/25/20 08/25/20 05:15 History Cyclobenzaprine HCl [Flexeril 5 MG 5 mg PO TID #30 tab 08/26/20 Unknown Rx TAB] Active Meds: Active Medications Aspirin (Aspirin) 325 mg PO BID [facility] Last Admin: 08/26/20 11:55 Dose: 325 mg Documented by: Bisacodyl (Dulcolax) 10 mg WI QDAY PRN PRN Reason: Constip unreliev by MOM/or NPO Cholecalciferol (Vitamin D3) 2,000 unit PO Q48HR [facility] Cyclobenzaprine HCl (Flexeril) 5 mg PO BID [facility] Last Admin: 08/26/20 11:56 Dose: Not Given Documented by: Gabapentin (Gabapentin) 300 mg PO TID [facility] Last Admin: 08/26/20 17:18 Dose: 300 mg Documented by: Lactated Ringer's (Lactated Ringers) 1,000 mls @ 100 mls/hr IV DIRECT [facility] Last Admin: 08/26/20 05:35 Dose: 100 mls/hr Documented by: Magnesium Hydroxide (Milk Of Magnesia) 30 ml PO Q4H PRN PRN Reason: Constipation Meperidine HCl (Demerol) 12.5 mg IV ONCE PRN PRN Reason: Shivering Last Admin: 08/25/20 11:40 Dose: 12.5 mg Documented by: Metformin HCl (Glucophage) 500 mg PO BID [facility] Last Admin: 08/26/20 11:55 Dose: 500 mg Documented by: Morphine Sulfate (Morphine) 2 mg IV Q4H PRN PRN Reason: Pain, Moderate (4-6) Last Admin: 08/26/20 03:59 Dose: 2 mg Documented by: Ondansetron HCl (Zofran) 4 mg IV Q6H PRN PRN Reason: Nausea And Vomiting Last Admin: 08/25/20 22:12 Dose: 4 mg Documented by: Oxycodone/Acetaminophen (Percocet 5/325) 1 tab PO Q4H PRN PRN Reason: Pain, Moderate (4-6) Last Admin: 08/26/20 15:42 Dose: 1 tab Documented by: Promethazine HCl (Phenergan) 25 mg [place] Q6H PRN PRN Reason: Nausea And Vomiting Sodium Chloride (Sodium Chloride Flush Syringe 10 Ml) 10 ml IV PRN NR Stop: 08/28/20 10:59 Review of Systems All systems: negative Exam - Constitutional Vitals: Temp Pulse Resp BP Pulse Ox 98.6 F 91 H 17 135/67 93 08/26/20 15:14 08/26/20 15:14 08/26/20 15:14 08/26/20 15:14 08/26/20 15:14 General appearance: Present: no acute distress, well-nourished - EENT Eyes: Present: PERRL ENT: hearing intact, clear oral mucosa - Neck Neck: Present: supple, normal ROM - Respiratory Respiratory effort: normal Respiratory: bilateral: CTA - Cardiovascular Heart Sounds: Present: S1 & S2. Absent: rub, click - Extremities Extremities: pulses symmetrical, No edema Peripheral Pulses: within normal limits - Abdominal General gastrointestinal: Present: soft, non-tender, non-distended, normal bowel sounds Female genitourinary: Present: normal - Integumentary Integumentary: Present: clear, warm, dry - Musculoskeletal Musculoskeletal: gait normal, strength equal bilaterally - Psychiatric Psychiatric: appropriate mood/affect, intact judgment & insight - Neurologic Neurologic: CNII-XII intact, moves all extremities Assessment and Plan - Patient Problems (1) History of total right knee replacement (TKR) Status: Acute Plan to address problem: Patient underwent to left total knee arthroplasty. Postop patient doing well (2) T2DM (type 2 diabetes mellitus) Status: Chronic Qualifiers: Diabetes mellitus roasterman insulin use: without skilled nursing use Plan to address problem: Continue coverage and check hemoglobin A1c resume metformin after discharge (3) Peripheral neuropathy Status: Chronic Qualifiers: Peripheral neuropathy type: polyneuropathy, unspecified Qualified Code(s): G62.9 - Polyneuropathy, unspecified Plan to address problem: Continue gabapentin (4) DVT prophylaxis Status: Acute
--- NOTE | 2020-08-26 18:02 | Discharge Summary ---
Providers - Providers Date of Admission: 08/25/20 05:59 Date of discharge: 08/26/20 Attending physician: JOSE YIP 08/25/20 10:45 Consult to Case Management [CONS] Routine Services Needed at Discharge: Home Health Services DME Equipment Finger Lift Operator Physical Therapy Notified:: yes Additional Physician Instructions: patient elects for outpatient PT Consult to Physician [CONS] Routine Comment: Consulting Provider: SALINA SOLORZANO Physician Instructions: Reason For Exam: medical management 08/25/20 10:48 Physical Therapy Evaluation and Treat [CONS] Routine Comment: Reason For Exam: POSTOP TKA LEFT Mode of Transport?: Walker Weight bearing status?: Full wt bearing Assistive devices?: Yes: WALKER Primary care physician: ÁNGELA ROMEO Hospitalization Condition: Good Disposition: DC/[place]-06 HOME UNDER HOME HL[facility] - Discharge Diagnoses (1) DVT prophylaxis Status: Acute Exam - Constitutional Vitals: Temp Pulse Resp BP Pulse Ox 98.6 F 91 H 17 135/67 93 08/26/20 15:14 08/26/20 15:14 08/26/20 15:14 08/26/20 15:14 08/26/20 15:14 General appearance: Present: no acute distress, well-nourished - EENT Eyes: Present: PERRL ENT: hearing intact, clear oral mucosa - Neck Neck: Present: supple, normal ROM - Respiratory Respiratory effort: normal Respiratory: bilateral: CTA - Cardiovascular Heart Sounds: Present: S1 & S2. Absent: rub, click - Extremities Extremities: pulses symmetrical, No edema Peripheral Pulses: within normal limits - Abdominal General gastrointestinal: Present: soft, non-tender, non-distended, normal bowel sounds Female genitourinary: Present: normal - Integumentary Integumentary: Present: clear, warm, dry - Musculoskeletal Musculoskeletal: gait normal, strength equal bilaterally - Psychiatric Psychiatric: appropriate mood/affect, intact judgment & insight - Neurologic Neurologic: CNII-XII intact, moves all extremities Plan Follow up with: ÁNGELA ROMEO MD [Primary Care Provider] - 7 Days Prescriptions: Cyclobenzaprine HCl [Flexeril 5 MG TAB] 5 mg PO TID #30 tab
[2020-08-27] MEDS ORDERED: NON-FORMULARY EACH (Cholecalciferol (Vitamin D3) [Vitamin D3 2,000 Unit Cap] 2,000 UNIT) PO SCH (10:00)
[2020-08-27] MEDS ORDERED: CHOLECALCIFEROL (VIT D3) 1000 UNIT (25 mcg) TAB PO SCH (10:00)
== END 2020-08-26 19:15 | disposition home health service (06) | DRG 470 ==
LOC: 3A 05:59 → 3B-SURG 11:02
PROVIDERS: ADMIT Orthopaedic Surgery; ATTEND Orthopaedic Surgery
PROC: 0SRD069 Replacement of Left Knee Joint with Oxidized Zirconium on Polyethylene Synthetic Substitute, Cemented, Open Approach (ICD-10-PCS; principal; 2020-08-25)
DX: M17.12 Unilateral primary osteoarthritis, left knee (principal); K21.9 Gastro-esophageal reflux disease without esophagitis; D64.9 Anemia, unspecified; Z20.828 Contact with and (suspected) exposure to other viral communicable diseases; Z88.5 Allergy status to narcotic agent; Z88.2 Allergy status to sulfonamides; Z68.37 Body mass index [BMI] 37.0-37.9, adult; R73.03 Prediabetes; M21.162 Varus deformity, not elsewhere classified, left knee; M67.262 Synovial hypertrophy, not elsewhere classified, left lower leg
CPT/HCPCS: 64450; 81001; 82962; 87086; 88305; G0378; A4217; C1713; C1776; J0690; J1100; J1170; J1885; J2175; J2250; J2270; J2370; J2400; J2405; J2704; J3010; J7040; J7120; Q0169; U0003-CS